=== PATIENT | female | born 1990 | race Caucasian/White ===

== ENCOUNTER 2022-06-11 15:28 | Outpatient (CLI) | payer BC | END 2022-06-11 15:29 | disposition home or self-care (01) | LOC: CTENTCT 15:28 | PROVIDERS: ATTEND Internal Medicine Pulmonary Disease | DX: J34.89 Other specified disorders of nose and nasal sinuses (principal) | CPT/HCPCS: 70486 ==

== ENCOUNTER 2022-07-04 09:55 | Day surgery (SDC) | payer BC ==
[2022-07-02 14:41] VITALS: BMI 23.8
[2022-07-04] MEDS ORDERED: Oxymetazoline HCl 0.05% (30 ML BOT) ONE ×2 (10:44→12:49)
[2022-07-04 11:01] LABS: BHCG - Serum Negative (NEGATIVE); Pregs Control Background? CLEAR/WHITE (CLR/WHITE); Pregs Control Bar Appear? YES (CONTROL BAR)
[2022-07-04] MEDS ORDERED: Bacitracin Zinc Ointment 30 gm TUBE ONE (12:49)
[2022-07-04] MEDS ORDERED: Bupivacaine/Epinephrine 0.25% 30 ML VIAL ONE (12:49)
[2022-07-04] MEDS ORDERED: fentaNYL Citrate/PF 100 MCG/2 ML SYRINGE ONE (13:13)
[2022-07-04] MEDS ORDERED: methylPREDNISolone Acetate 40 mg/ml Vial ONE (13:30)
[2022-07-04] MEDS ORDERED: traMADol HCl 50 MG TAB ONE (15:18)
== END 2022-07-04 16:30 | disposition home or self-care (01) ==
LOC: SDC 09:55
PROVIDERS: ATTEND Specialist
PROC: 8E09XBZ Computer Assisted Procedure of Head and Neck Region (ICD-10-PCS; principal; 2022-07-04)
PROC: 09SM0ZZ Reposition Nasal Septum, Open Approach (ICD-10-PCS; principal; 2022-07-04)
PROC: 09SL8ZZ Reposition Nasal Turbinate, Via Natural or Artificial Opening Endoscopic (ICD-10-PCS; principal; 2022-07-04)
PROC: 099X8ZZ Drainage of Left Sphenoid Sinus, Via Natural or Artificial Opening Endoscopic (ICD-10-PCS; principal; 2022-07-04)
PROC: 099R8ZZ Drainage of Left Maxillary Sinus, Via Natural or Artificial Opening Endoscopic (ICD-10-PCS; principal; 2022-07-04)
PROC: 09BT8ZZ Excision of Left Frontal Sinus, Via Natural or Artificial Opening Endoscopic (ICD-10-PCS; principal; 2022-07-04)
PROC: 09BS8ZZ Excision of Right Frontal Sinus, Via Natural or Artificial Opening Endoscopic (ICD-10-PCS; principal; 2022-07-04)
PROC: 099Q8ZZ Drainage of Right Maxillary Sinus, Via Natural or Artificial Opening Endoscopic (ICD-10-PCS; principal; 2022-07-04)
PROC: 099W8ZZ Drainage of Right Sphenoid Sinus, Via Natural or Artificial Opening Endoscopic (ICD-10-PCS; principal; 2022-07-04)
PROC: 09TU8ZZ Resection of Right Ethmoid Sinus, Via Natural or Artificial Opening Endoscopic (ICD-10-PCS; principal; 2022-07-04)
PROC: 09TV8ZZ Resection of Left Ethmoid Sinus, Via Natural or Artificial Opening Endoscopic (ICD-10-PCS; principal; 2022-07-04)
DX: J32.8 Other chronic sinusitis (principal); J34.2 Deviated nasal septum; J34.3 Hypertrophy of nasal turbinates; G44.89 Other headache syndrome; J33.0 Polyp of nasal cavity; J30.81 Allergic rhinitis due to animal (cat) (dog) hair and dander; J30.1 Allergic rhinitis due to pollen; K21.9 Gastro-esophageal reflux disease without esophagitis; Z79.899 Other long term (current) drug therapy
CPT/HCPCS: 36415; 84703; 85014; J2920